=== PATIENT | male | born 1955 | race Caucasian/White ===

== ENCOUNTER 2018-10-12 18:21 | Emergency (ER) | payer OTHER ==
[2018-10-12] MEDS ORDERED: NS 1,000 ML IV ONE (19:11)
[2018-10-12 19:20] LABS: PLATELET COUNT 167 10^3/uL (150-400)
[2018-10-12] MEDS ORDERED: ONDANSETRON 4 MG/2 ML VIAL ONE (19:21)
[2018-10-12] MEDS ORDERED: HYDROmorphONE/DILAUDID 1 MG/ML INJ ONE (19:21)
[2018-10-12] MEDS ORDERED: HYDROmorphONE/DILAUDID 2 MG/ML INJ IVP ONE ×2 (19:22→19:28)
[2018-10-12] MEDS ORDERED: ONDANSETRON 4 MG/2 ML VIAL IVP ONE (19:23)
[2018-10-12] MEDS ORDERED: KETOROLAC 30 MG/1 ML SDV IVP ONE (19:35)
--- NOTE | 2018-10-12 19:35 | EDPHY ---
H & P Time Seen by Provider: 10/12/18 19:11 HPI/ROS: HPI Right flank pain. 63-year-old male by private vehicle with his . This patient has a history of kidney stones. He reports onset of right flank pain since 11:30 a.m. This morning. He reports that has been getting steadily worse since that time. He describes it as sharp and cramping. He reports it to be much more intense over the last couple of hours. He reports the pain is identical to the pain he has had in the past with his kidney stones. He has had associated nausea with some dry heaving. Denies gross hematuria. ROS: Constitutional: No fever, no chills. No weakness. Eyes: No discharge. No changes in vision. ENT: No sore throat. No nasal congestion or rhinorrhea. Respiratory: No cough. No shortness of breath. Cardiac: No chest pain, no palpitations. Gastrointestinal: No abdominal pain, as above, no diarrhea. Genitourinary: No hematuria. No dysuria or increased frequency with urination. Musculoskeletal: As above. No neck pain. No myalgias or arthralgias. Skin: No rashes. Neurological: No headache. No focal weakness or altered sensation. Past medical history: Kidney stones, hypertension, knee surgery, umbilical hernia repair. Social history: Nonsmoker. No alcohol. Here with his . Physical Exam: General Appearance: Alert, he appears very uncomfortable. Sitting upright and leaning forward. This patient is responding to questions appropriately and in full sentences. This patient appears well-hydrated and well-nourished. Eyes: Pupils equal and round no pallor or injection. No lid edema, erythema or injection. Respiratory: There are no retractions, lungs are clear to auscultation with good air movement bilaterally. Cardiovascular: Regular rate and rhythm. No murmur. Gastrointestinal: Abdomen is soft and nontender, no masses, bowel sounds normal. No focal tenderness at McBurney's point. No Morgan sign. Neurological: Motor sensory function is grossly intact. Cranial nerves are normal. Gait is normal. Skin: Warm and dry, no rashes. Musculoskeletal: Right CVA tenderness on palpation. No left-sided CVA tenderness on palpation. Extremities are symmetrical. All joints range without pain or impingement. Psychiatric: No agitation. No depression. Database: EKG: Imaging: CT scan of abdomen and pelvis without contrast: Significant for a right-sided UVJ stone just about to enter the bladder measuring 6.5 x 4 x 6.5 mm. Results were discussed with staff radiologist Dr. Aakash Canada. No other significant pathology. Procedures: Emergency department course: Triage vital signs reviewed. He is mildly hypertensive. Vital signs are otherwise normal. IV was placed. Medication allergies reviewed. He was started on IV normal saline with 1-2 L to be given over the next 1-2 hours. He will initially be given 0.5 mg of IV hydromorphone as well as 4 mg of IV Zofran. This will be repeated up to x3 as needed for pain control. He has no contraindications to NSAIDs. After verification of a normal creatinine. He will be given 30 mg of IV Toradol. He consents to CT imaging to evaluate for ureterolithiasis. 7:35 p.m., patient has a normal creatinine. He will be given 30 mg of IV Toradol. 8:50 p.m., the patient was re-evaluated, he is resting comfortably at this time. No pain. He is clearly feeling much better. Results of his CT scan, blood work and urinalysis discussed with him and his . He was given 0.4 mg of Flomax. I feel he may have passed this stone into his bladder. I did discuss further observation in the emergency department but he feels comfortable going home at this point. I will prescribe him Vicodin as well as Flomax. Urology follow-up was discussed. Return to emergency department precautions thoroughly reviewed. All of their questions were answered. The patient was discharged home in good condition with his . Differential Diagnosis: The differential diagnosis on this patient includes but is not limited to right- sided ureterolithiasis. Testicular torsion, volvulus, appendicitis, cholecystitis unlikely. This represents a partial list of diagnoses considered. These considerations are based on history, physical exam, past history, reassessment and diagnostic testing. Smoking Status: Never smoked Constitutional: Initial Vital Signs Temperature (C) 36.6 C 10/12/18 18:43 Heart Rate 78 10/12/18 18:43 Respiratory Rate 16 10/12/18 18:43 Blood Pressure 143/85 H 10/12/18 18:43 O2 Sat (%) 98 10/12/18 18:43 O2 Delivery Mode Room Air Allergies/Adverse Reactions: No Known Allergies Allergy (Verified 10/12/18 18:42) Home Medications: Medication Instructions Recorded Hydrocodone/APAP 5/325 [[place] 1 - 2 tab PO Q4-6PRN PRN #10 tab 10/12/18 5/325 (*)] Lisinopril 10/12/18 Ondansetron Odt [Zofran Odt 4 mg 4 mg PO Q4PRN PRN #10 tab 10/12/18 (*)] Tamsulosin HCl [Flomax 0.4 MG (*)] 0.4 mg PO DAILY #4 cap 10/12/18 Medical Decision Making - Diagnostics Imaging Results: Imaging Impressions Abdomen/Pelvis CT 10/12/18 19:31 Impression: 1. Mild to moderate right-sided hydronephrosis secondary to a calculus at the right UVJ almost within the bladder measuring 6 x 4.5 x 6 mm. 2. 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 Attention: This CT examination is specifically designed to evaluate patients who are clinically suspected of having acute obstructive uropathy. This examination does not use radiographic contrast, and as such, provides only a limited evaluation of the abdomen, pelvis and retroperitoneum. If there is further clinical suspicion for pathological conditions other than obstructive uropathy, a complete CT evaluation of the abdomen and pelvis utilizing intravenous, and oral contrast should be considered. - Data Points Laboratory Results: Laboratory Results 10/12/18 19:10 10/12/18 19:10 10/12/18 10/12/18 10/12/18 19:50 19:10 19:10 WBC 11.72 10^3/uL H 10^3/uL (3.80-9.50) RBC 5.17 10^6/uL 10^6/uL (4.40-6.38) Hgb 16.6 g/dL g/dL (13.7-17.5) Hct 47.3 % % (40.0-51.0) MCV 91.5 fL fL (81.5-99.8) MCH 32.1 pg pg (27.9-34.1) MCHC 35.1 g/dL g/dL (32.4-36.7) RDW 12.9 % % (11.5-15.2) Plt Count 167 10^3/uL 10^3/uL (150-400) MPV 10.6 fL fL (8.7-11.7) Neut % (Auto) 87.9 % H % (39.3-74.2) Lymph % (Auto) 8.0 % L % (15.0-45.0) [place] % (Auto) 3.5 % L % (4.5-13.0) Eos % (Auto) 0.0 % L % (0.6-7.6) Baso % (Auto) 0.3 % % (0.3-1.7) Nucleat RBC Rel Count 0.0 % % (0.0-0.2) Absolute Neuts (auto) 10.30 10^3/uL H 10^3/uL (1.70-6.50) Absolute Lymphs (auto) 0.94 10^3/uL L 10^3/uL (1.00-3.00) Absolute Monos (auto) 0.41 10^3/uL 10^3/uL (0.30-0.80) Absolute Eos (auto) 0.00 10^3/uL L 10^3/uL (0.03-0.40) Absolute Basos (auto) 0.04 10^3/uL 10^3/uL (0.02-0.10) Absolute Nucleated RBC 0.00 10^3/uL 10^3/uL (0-0.01) Immature Gran % 0.3 % % (0.0-1.1) Immature Gran # 0.03 10^3/uL 10^3/uL (0.00-0.10) Sodium 137 mEq/L mEq/L (135-145) Potassium 4.2 mEq/L mEq/L (3.5-5.2) Chloride 108 mEq/L mEq/L (97-110) Carbon Dioxide 18 mEq/l L mEq/l (22-31) Anion Gap 11 mEq/L mEq/L (6-14) BUN 18 mg/dL mg/dL (7-23) Creatinine 0.8 mg/dL mg/dL (0.7-1.3) Estimated GFR > 60 Glucose 178 mg/dL H mg/dL (70-100) Calcium 9.5 mg/dL mg/dL (8.5-10.4) Urine Color YELLOW Urine Appearance CLEAR Urine pH 5.0 (5.0-7.5) Ur Specific [employer] 1.025 (1.002-1.030) Urine Protein NEGATIVE (NEGATIVE) Urine Ketones 2+ H (NEGATIVE) Urine Blood 3+ H (NEGATIVE) Urine Nitrate NEGATIVE (NEGATIVE) Urine Bilirubin NEGATIVE (NEGATIVE) Urine Urobilinogen NEGATIVE EU EU (0.2-1.0) Ur Leukocyte Esterase NEGATIVE (NEGATIVE) Urine RBC 50-182 /hpf H /hpf (0-3) Urine WBC 1-3 /hpf /hpf (0-3) Ur Epithelial Cells NONE SEEN /lpf /lpf (NONE-1+) Urine Mucus TRACE /lpf /lpf (NONE-1+) Urine Glucose NEGATIVE (NEGATIVE) Medications Given: Discontinued Medications Hydromorphone HCl (Dilaudid) 0.5 mg IVP EDNOW ONE Stop: 10/12/18 19:23 Last Admin: 10/12/18 19:24 Dose: 0.5 mg Hydromorphone HCl (Dilaudid) 0.5 mg IVP EDNOW ONE Stop: 10/12/18 19:29 Last Admin: 10/12/18 19:31 Dose: 0.5 mg Sodium Chloride (Ns) 1,000 mls @ 0 mls/hr IV EDNOW ONE; Wide Open PRN Reason: Protocol Stop: 10/12/18 19:12 Last Admin: 10/12/18 19:14 Dose: 1,000 mls Ketorolac Tromethamine (Toradol) 30 mg IVP EDNOW ONE Stop: 10/12/18 19:36 Last Admin: 10/12/18 19:42 Dose: 30 mg Ondansetron HCl (Zofran) 4 mg IVP EDNOW ONE Stop: 10/12/18 19:24 Last Admin: 10/12/18 19:24 Dose: 4 mg Tamsulosin HCl (Flomax) 0.4 mg PO EDNOW ONE Stop: 10/12/18 20:33 Last Admin: 10/12/18 20:38 Dose: 0.4 mg Departure - Departure Disposition: Home, Routine, Self-Care Clinical Impression: Kidney stone on right side Condition: Good Instructions: Kidney Stones (ED) Additional Instructions: Read and follow provided instructions. Follow-up with Urology, Dr. Tiana Tobias, on Sunday or Sunday of this coming week for re-evaluation as discussed. Do not take ibuprofen until tomorrow morning. Ibuprofen dosin mg every 6 hours with meals for the next 3 days only. Take only as needed for pain. Narcotic pain medication: 1-2 every 4-6 hours as needed for pain. Do not drive while on this medication. Return to the emergency department for worsening pain, vomiting, fever or other serious concerns. Referrals: Tiana Tobias MD [Medical Doctor] - As per Instructions Prescriptions: Hydrocodone/APAP 5/325 [[place] 5/325 (*)] 1 - 2 tab PO Q4-6PRN PRN #10 tab PRN Reason: Pain, Moderate Ondansetron Odt [Zofran Odt 4 mg (*)] 4 mg PO Q4PRN PRN #10 tab PRN Reason: For Nausea & Vomiting Tamsulosin HCl [Flomax 0.4 MG (*)] 0.4 mg PO DAILY #4 cap
[2018-10-12] MEDS ORDERED: TAMSULOSIN HCL 0.4 MG CAP PO ONE (20:32)
[2018-10-12 20:40] VITALS: BP 112/80
[2018-10-12] MEDS ORDERED: HYDROCOD/APAP 5/325 PREPACK#6 BTL TAKEHOME ONE (20:58)
[2018-10-12] MEDS ORDERED: ONDANSETRON 4MG PREPACK#2 BTL TAKEHOME ONE (20:58)
== END 2018-10-12 21:15 | disposition home or self-care (01) ==
DX: N20.0 Calculus of kidney (principal); I10 Essential (primary) hypertension; E86.9 Volume depletion, unspecified; Z87.442 Personal history of urinary calculi
CPT/HCPCS: 96374; J1170; J1885; J2405